=== PATIENT | male | born 1945 | race Caucasian/White ===

== ENCOUNTER → 2019-07-17 | Outpatient (CLI) | payer OTHER ==
--- NOTE | 2019-07-31 11:41 | PFR/MVV ---
[facility] [place] [address] PULMONARY FUNCTION MVV/REPORT Name: PEREZ NUGENT III Room #: [facility]#: [id number] Admission: 07/17/19 Attend Phys: Cayetano Johnson MD Discharge: Date of : 49 Report #: [id number] THIS REPORT FOR: //name// >> SPIROMETRY: (BTPS) Height: 65 in cm Weight: 142 lbs kg Exam Date: 07/17/19 PRE-RX POST-RX PRED BEST %PRED BEST %PRED %CHG FVC LITERS . 3.58 . 3.07 . 86 . 3.34 . 93 . 9 FEV1 LITERS . 2.42 . 0.67 . 28 . 0.85 . 35 . 27 FEV1/FVC % . 69 . 22 . 32 . 26 . 37 . 16 GPU99-86% L/Sec . 2.33 . 0.16 . 7 . 0.22 . 10 . 37 PEF L/SEC . 7.00 . 2.22 . 32 . 1.74 . 25 . -21 FEF50/FIF50 UNITLESS . . 0.06 . . 0.07 . . 18 MVV L/Min . 108 . 17 . 16 f 1/Min . . 120 . >> LUNG VOLUMES: (BTPS) PRE-RX POST-RX PRED AVG %PRED AVG %PRED %CHG VC Liters . 3.58 . 3.40 . 95 . . . TLC Liters . 5.29 . 8.92 . 169 . . . RV Liters . 2.23 . 5.52 . 247 . . . RV/TLC % . 41 . 62 . 150 . . . FRC PL Liters . 3.22 . 6.2 . 193 . . . FRC N2 Liters . . . . . . ERV Liters . 1.22 . 0.69 . 57 . . . IC Liters . 2.45 . 2.68 . 109 . . . >> DIFFUSION: DLCO ml/Min/mmHg . 16.2 . 10.9 . 67 . . . DL Sandeep ml/Min/mmHg . 16.2 . 10.9 . 67 . . . DLCO/VA ml/Min/mmHg . 3.47 . 1.95 . 56 . . . VA Liters . . 5.55 . . . . COMMENTS: COMMENTS: >> RESISTANCE: [address] [address] PULMONARY FUNCTION MVV/REPORT Name: PEREZ NUGENT CLARE III Room #: [facility]#: [id number] Admission: 07/17/19 Attend Phys: Cayetano Johnson MD Discharge: Date of : 49 Report #: [id number] PRE-RX PRED AVG %PRED Raw Total cmH20/L/Sec . . 9.91 . Raw Insp cmH20/L/Sec . . 4.41 . Raw Exp cmH20/L/Sec . . 13.83 . Raw cmH20/L/Sec . 1.44 . 5.07 . 353 Gaw L/Sec/cmH20 . 0.772 . 0.197 . 26 sRaw cmH20 Sec . 4.62 . 40.72 . 882 sGaw l/cmH20 Sec . 0.217 . 0.025 . 11 Vtq Liters . . 8.03 . # = OUTSIDE 95% CONFIDENCE INTERVAL CALIBRATION: PRED: 3.00 ACTUAL: EXP 3.01 INSP 3.02 [facility]-10-06 [place] [id number] N-[id number] >> INTERPRETATION/IMPRESSION: CC: Cayetano Johnson FAM unknown PULMONARY FUNCTION STUDIES FEV1 is 0.67 (28%), FVC is 3.07 liters (86%), FEV1/FVC ratio is 22%. There is a significant response to bronchodilator therapy. FEV1 increased to 0.85 liters (35%, 27% change). LUNG VOLUMES: Total lung capacity is 8.92 liters (169%). RV is 5.52 liters (247%). Diffusing capacity 67%. IMPRESSION: Pulmonary function studies are consistent with very severe obstructive airflow defect with a positive response to bronchodilator therapy. There is mild air trapping and moderate hyperinflation. Diffusing capacity is slightly decreased. <ELECTRONICALLY SIGNED> By: Gelacio Pierson MD 07/31/19 1141 Gelacio Pierson MD /nt
== END ==
LOC: PUL 08:53
DX: C34.90 Malignant neoplasm of unspecified part of unspecified bronchus or lung (principal)